=== PATIENT | male | born 1975 ===

== ENCOUNTER 2017-05-05 08:09 | Emergency (ER) | payer OTHER ==
[~2017-05-05] VITALS: Ht 177.8 cm; Wt 69.1 kg
[2017-05-05 08:17] VITALS: BP 105/68; PULSE 95; RESP 16; O2SAT 100
--- NOTE | 2017-05-05 08:34 | ED.REPORT ---
HPI-Trauma Minor / Fall Date of Service May 05, 2017 ED Provider: Dr. aDmon Pt is a 41 year old male with a hx of Afib on Coumadin and stroke presenting to the ED after 2 syncopal episodes just prior to arrival. Associated symptoms include dizziness, palpitations, weakness in the legs, and unsteadiness. Denies abdominal pain, nausea, vomiting, speech problems, or headache. His reports that his first episode was when he jumped up from bed and the second was while standing and he fell backwards. His reports that the pt was confused and disoriented following the episode but he arrives to the ED awake and alert. Denies hx of DVT or PE. Nursing Notes Stated Complaint: SYNCOPE, LIGHT HEADED Chief Complaint: General Complaint Nursing Notes Reviewed: Yes Allergies: Coded Allergies: No Known Allergies (Unverified , 05/05/17) General Time Seen by MD: 08:34 Chief Complaint Fall, Other (Syncope) Hx Obtained From: Patient, Spouse Arrived By: Walk-in Onset Occurred: Just prior to arrival Symptom Duration: Since onset Caused by: Fall on ground Severity: Current: No pain currently Severity: Maximum: No pain Recent Healthcare: No recent doctor visit, No recent hospitalization Similar Sx Previous: No Past Medical History Past Medical History Afib on Coumadin Stroke Past Surgical History denies Smoking History Unknown if Ever Smoker Social History Just moved here from [place] Ambulatory Status Independent Review of Systems Neurologic: Reports: Change LOC, Confusion, Dizziness, Problem walking, Syncope , Weakness, Denies: Headache, Slurred speech, Unable to speak Complete sys rev & neg: except as marked. Cardiovascular: Reports: Palpitations GI: Denies: Abdominal pain, Nausea, Vomiting Physical Exam Initial Vital Signs Vital Signs (First) Date Time Temp Pulse Resp B/P Pulse Ox O2 Delivery O2 Flow Rate FiO2 05/05/17 08:17 36.1 95 16 105/68 100 05/05/17 09:01 Room Air Initial VS: Reviewed ENT: Mucous membranes moist, Conjunctiva normal, No scleral icterus Respiratory: Breath sounds normal, Clear to auscultation, No respiratory distress Abdomen / GI: Soft, Non-tender, No guarding, No rebound, No distention Extremities: Vascular intact, Neuro intact, No swelling, No tenderness Skin: Warm, Dry, No cyanosis Psychiatric: Mood/affect normal, Behavior normal, Normal thought content General/Constitutional: Awake, Alert, No acute distress Head / Eyes: Atraumatic, Normocephalic, PERRL, EOMI, No nystagmus Cardiovascular: No gallop, No murmurs, No rubs Heart Rate / Rhythm: Positive: Irreg irregular rhythm, Tachycardia Neurologic: Oriented X3, Speech NL, No motor deficits, No sensory deficits, CN II - XII intact, Reflexes equal bilat, Cerebellar NL, Memory NL Neurologically intact. Interpretation & Diagnostics Lab Results Interpretation Result Diagram: 05/05/17 0835 Test 05/05/17 08:35 05/05/17 08:58 White Blood Count 8.6th/mm3 (3.8-10.1) Red Blood Count 4.83mil/mm3 (4.40-5.80) Hemoglobin 15.6g/dL (13.8-17.2) Hematocrit 44.7% (41.0-50.0) Mean Corpuscular Volume 92.5fL (81-100) Mean Corpuscular Hemoglobin 32.3pg (27.0-35.0) Mean Corpuscular Hemoglobin Concent 34.9% (32.0-37.0) Red Cell Distribution Width 13.1% (12.3-15.4) Platelet Count 176bil/L (150-400) Neutrophils (%) (Auto) 67.8% (40-74) Lymphocytes (%) (Auto) 22.0% (14-46) Monocytes (%) (Auto) 8.5% (4-12) Eosinophils (%) (Auto) 1.2% (0-5) Basophils (%) (Auto) 0.3% (0-3) Prothrombin Time 21.9sec (8.1-12.5) Prothromb Time International Ratio 2.02ratio ECG Interpretation ECG Interpretation: Afib with a rate of 112. Time: 08:54 Interpreted by: ED physician CT Head Interpretation IMPRESSION: 1. Left frontal subarachnoid hemorrhage and probable trace subdural hematoma as above. No midline shift. This finding was discussed with Dr. Cole 8:52 AM on 05/05/17. 2. Old left frontal infarct. Dictated by: Farideh Jennings M.D. on 05/05/2017 at 8:50 Study: Head CT no contrast Interpretation / Wet Read by: Interpret - Radiologist Re-Eval/Medical Decision Med Decision/Clinical Course Traumatic subarachnoid hemorrhage and subdural hematoma. Warfarin-induced coagulopathy. A. fib with RVR treated with IV metoprolol. Patient will be transferred to [facility] for definitive management. Re-Evaluation/Progress #1: Time of Eval: 08:52 Patient Status: Condition improved Re-Evaluation/Progress Note: Discussed CT results and presence of brain bleed. Discussed plan for transfer to [facility]. Pt understands and agrees. Performed neuro exam. Re-Evaluation/Progress #2: Time of Eval: 08:59 Patient Status: Condition improved Re-Evaluation/Progress Note: Discussed risks of the bleed. All questions addressed. Consultation #1: Call Returned at: 09:01 Note: Consultation with Jese at the transfer center. Requesting airlift to [facility]. Consultation #2: Consulted With: Neurosurgery Call Returned at: 09:06 Note: Dr. Grant at [facility] accepts transfer. Counseled Regarding: Diagnosis, Lab results, Need for transfer ([facility]) Discharge & Departure Impression: Primary Impression: Traumatic subarachnoid hemorrhage Encounter type: initial encounter Loss of consciousness presence/duration: with LOC of 30 min or less Qualified Code: S06.6X1A - Traumatic subarachnoid hemorrhage with loss of consciousness of 30 minutes or less, initial encounter Disposition: Transfer, Acute Care Facility ([facility]) Transfer Requested at: 08:52 Call returned time (904) Receiving Hospital: [facility] emergency department Transfer Accepted: Yes Transfer Accepted at: 09:06 Transfer Reason: Higher level of care Spoke with: Specialty physician Patient Status: Stable, Stable for transfer Patient Informed: Yes Discharge Condition All VS Reviewed: Yes Condition: Improved Crit Care Except Billable Proc Time Spent: 30-74 minutes Services Performed: Patient management by me, Time spent at bedside, Reviewing test results, Reviewing imaging, Discussing patient care, Documentation in record Critical Care Notes: See MDM, 45 minutes Scribe Attestation Portions of this note were transcribed by Graciela King. I, Dr. Damon personally performed the history, physical exam and medical decision-making; I reviewed and confirmed the accuracy of the information in the transcribed note. Signed by: Mitchel Alfaro, 05/05/2017. Risk Factors )( IC Bleed Risk Strat Blood thinners Prior epidural bleed RF Statements: Risk factors reviewed Quinten Damon DO May 05, 2017 08:34 GRACIELA KING May 05, 2017 08:40
[2017-05-05 08:50] LABS: BASOPHILS % (AUTO) 0.3 % (0-3); EOSINOPHILS % (AUTO) 1.2 % (0-5); MONOCYTES % (AUTO) 8.5 % (4-12); Mean Corpuscular Hemoglobin 32.3 pg (27.0-35.0); Mean Corpuscular Volume 92.5 fL (81-100); NEUTROPHILS % (AUTO) 67.8 % (40-74); Platelet Count 176 bil/L (150-400)
--- NOTE | 2017-05-05 08:55 | DRSVH ---
PROCEDURE: CT BRAIN WITHOUT CONTRAST ([id number]) INDICATIONS: syncope/on blood thinners TECHNIQUE: Noncontrast 4.5 mm thick angled axial sections acquired from the foramen magnum to the vertex, with c oronal reformats. COMPARISON: None. FINDINGS: Image quality: Excellent. CSF spaces: Basal cisterns are patent. No extra-axial fluid collections. Ventricles are normal in size and shape. Brain: No midline shift. No intracranial masses. There is a small amount of subarachnoid hemorrhage along the medial aspect of the left frontal lobe. There may be a small component of subdural hemorrh age along the falx cerebri as well. Taylor-white matter interface is normal. Encephalomalacia is prese nt within the lateral aspect of the left frontal lobe, likely within the watershed area between the a nterior and middle cerebral arteries. No intraventricular hemorrhage. Skull and face: Calvarium and visualized facial bones are intact, without suspicious lesions. Sinuses: Visualized sinuses and mastoids are clear. IMPRESSION: 1. Left frontal subarachnoid hemorrhage and probable trace subdural hematoma as above. No midline radha ft. This finding was discussed with Dr. Cole 8:52 AM on 05/05/17. 2. Old left frontal infarct. Dictated by: Farideh Jennings M.D. on 05/05/2017 at 8:50 Approved by: Farideh Jennings M.D. on 05/05/2017 at 8:53
[2017-05-05] MEDS ORDERED: MeTOProlol 1 mg/mL 5 mL Inj IVPUSH SCH (09:00)
[2017-05-05 09:01] VITALS: BP 111/60; PULSE 115; RESP 16; O2SAT 98
[2017-05-05 09:05] LABS: INR 2.02 ratio
[2017-05-05] MEDS ORDERED: Phytonadione (Adult) 10 MG in Dextrose 5%-Pha MIX 50 ML IV ONE (09:10)
[2017-05-05] MEDS ORDERED: PROTHROMBIN COMPLEX IV ONE (09:10)
[2017-05-05 09:13] LABS: TROPONIN T 0.01 ug/L (0.0-0.011)
[2017-05-05 09:33] VITALS: BP 108/66; PULSE 97; RESP 16; O2SAT 98
[2017-05-05 09:51] VITALS: BP 108/66; PULSE 112; RESP 16; O2SAT 98
== END 2017-05-05 09:53 | disposition short-term general hospital (02) ==
LOC: SED 08:09
DX: S06.6X1A Traumatic subarachnoid hemorrhage with loss of consciousness of 30 minutes or less, initial encounter (principal); D68.32 Hemorrhagic disorder due to extrinsic circulating anticoagulants; T45.515A Adverse effect of anticoagulants, initial encounter; W01.0XXA Fall on same level from slipping, tripping and stumbling without subsequent striking against object, initial encounter; Y93.01 Activity, walking, marching and hiking; Y99.8 Other external cause status; Y92.018 Other place in single-family (private) house as the place of occurrence of the external cause; I48.91 Unspecified atrial fibrillation; F12.10 Cannabis abuse, uncomplicated; Z86.73 Personal history of transient ischemic attack (TIA), and cerebral infarction without residual deficits; Z79.01 Long term (current) use of anticoagulants
CPT/HCPCS: 36415; 70450; 80053; 83880; 84484; 85025; 85610; 86850; 93005; 96361; 96374; 96375; 99291; C9132; J3430

== ENCOUNTER 2017-06-10 13:16 | Emergency (ER) | payer OTHER ==
[~2017-06-10] VITALS: Ht 180.3 cm; Wt 68.2 kg
[2017-06-10] VITALS (8 sets, daily range): BP systolic 128–138; BP diastolic 71–89; PULSE 66–85; RESP 14–18; O2SAT 97–98
--- NOTE | 2017-06-10 14:12 | DRSVH ---
PROCEDURE: X-RAY CHEST ONE VIEW, PORTABLE ([id number]) INDICATIONS: PAIN, cardiomyopathy hx TECHNIQUE: One view of the chest was acquired. COMPARISON: None. FINDINGS: Surgical changes and devices: None. Lungs and pleura: No pleural effusions or pneumothorax. Lungs are clear. Mediastinum: Mediastinal contours appear normal. Heart size is normal. Bones and chest wall: No suspicious bony lesions. Overlying soft tissues appear unremarkable. IMPRESSION: No acute cardiopulmonary disease process. Dictated by: Michelle Ellis MD, PhD on 06/10/2017 at 13:10 Approved by: Michelle Ellis MD, PhD on 06/10/2017 at 13:11
[2017-06-10 14:36] LABS: BASOPHILS % (AUTO) 0.2 % (0-3); EOSINOPHILS % (AUTO) 0.7 % (0-5); MONOCYTES % (AUTO) 10.5 % (4-12); Mean Corpuscular Volume 89.8 fL (81-100); NEUTROPHILS % (AUTO) 69.8 % (40-74); Platelet Count 198 bil/L (150-400)
--- NOTE | 2017-06-10 15:08 | ED.REPORT ---
HPI-General Illness Peds Date of Service Jun 10, 2017 ED Provider: Simran Garcia MD The pt is a 41 y/o male with hx of recent traumatic subarachnoid hemorrhage and subdural hematoma (05/05/2017) on Warfarin, A-fib with RVR, CHF and Hep C s/p Harvoni treatment who presents to the ED complaining of persistent headache onset 4 days ago. The headache has been constant since onset and he has never experienced similar pain previously, reporting that it is the "worst headache of my life." The headache has no known relieving factors and he has been bedridden for the last 2 days due to his discomfort. The patient admits to histting his head 4 days ago but denies any other recent traumas. The pt is also complaining of bilateral hip/leg cramps that are exacerbated by movement and walking and radiate to his neck and back. He is concerned that it might be due to change in medication in February of 2017 including the following recent additions; metoprolol, spironolactone, Entresto (acubitril/valsartan), and dofetelide (antiarrythmic). Associated symptoms also include dizziness and vision changes, chills, rigors, diarrhea, and photophobia. He denies chest pain, abdominal pain or any other symptoms at this time. Nursing Notes Stated Complaint: HEADACHES/BODY CRAMPS/UC Chief Complaint: General Complaint Nursing Notes Reviewed: Yes Allergies: Coded Allergies: No Known Allergies (Unverified , 05/05/17) General Time Seen by MD: 15:13 Chief Complaint Headache Hx Obtained from: Patient Arrived by: Walk-in Sudden in Onset?: Yes Onset Occurred: 4 days ago Symptom Duration: Constant Location: : Head Radiation: : Back Severity: Current: Severe Severity: Maximum: Severe Associated with: Reports: Chest pain, Dizziness, Neck pain, Off balance, Pain on walking, Vision change Pertinent Negative: Pt denies other symptoms Pertinent Negative: Relieved by nothing Context: Immunization Status General: Unknown Recent Healthcare: No recent hospitalization, Recent doctor visit Similar Sx Previous: Yes Past Medical History 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 Traumatic subarachnoid hemorrhage and subdural hematoma 04/2017, on Warfarin 3. A. fib with RVR 4. Hepatitis C post harvoni treatment Past Surgical History Subarachnoid hemorrhage (05/05/17) Family History Non contributory Smoking History Former Smoker Social History Partnered ([employer]) Not currently working Uses marijuana Social History: Reports: Prior DCF involvement Ambulatory Status Ambulatory Status: Independent Review of Systems Review of Systems Note: + mild expressive and mild receptive aphasia as a consequence of previous stroke. + rigors Denies recent trauma to the head since his last visit on 05/05/17 Full Review of Systems Constitutional: Reports: Chills, Denies: Fever Cardiovascular: Denies: Chest pain GI: Reports: Diarrhea, Denies: Abdominal pain Musculoskeletal: Reports: Extremity pain (LE cramping), Joint pain (Bilateral hip cramp) Neurologic: Reports: Headache, Denies: Vision change Complete sys rev & neg: except as marked. Physical Exam Initial Vital Signs Vital Signs (First) Date Time Temp Pulse Resp B/P Pulse Ox O2 Delivery O2 Flow Rate FiO2 06/10/17 13:31 37.2 71 16 136/89 97 06/10/17 15:13 Room Air Initial VS: Reviewed Head / Eyes: Atraumatic, Normocephalic Respiratory: No respiratory distress Skin: Warm, Dry, No cyanosis Neurologic: Alert, Oriented, Nonfocal Psychiatric: Mood/affect normal, Behavior normal General / Constitutional: Awake, Alert, No apparent distress Respiratory / Chest: Atraumatic, Breath sounds NL, Breath sounds = bilat, No respiratory distress Cardiovascular: Heart rate NL, Regular rhythm, Heart sounds NL, Peripheral circulation NL, Pulses = bilaterally Abdomen: Atraumatic, Soft Upper Extremity / MS: Atraumatic, Normal inspection, Neurologic intact, Vascular intact Lower Extremity / Pelvis / MS: Atraumatic, Vascular intact Neurologic: Orientation NL for age, Speech NL for age, No sensory deficits, CN II - XII intact, Reflexes equal bilat Cerebellar Dysfunction: Positive: Heel-de la garza abnl (secondary to weakness, he was unable to perform) NEUROLOGIC: Mild ataxia present finger to nose Bilateral 4/5 strength in both lower extremities Interpretation & Diagnostics CT Lumbar w/o contrast Read by Radiology IMPRESSION: No fracture. Dictated by: Michelle Ellis MD, PhD on 06/10/2017 at 15:25 Lab Results Interpretation Result Diagram: 06/10/17 1422 06/10/17 1422 Test 06/10/17 14:22 White Blood Count 10.3th/mm3 (3.8-10.1) Red Blood Count 4.88mil/mm3 (4.40-5.80) Hemoglobin 15.6g/dL (13.8-17.2) Hematocrit 43.8% (41.0-50.0) Mean Corpuscular Volume 89.8fL (81-100) Mean Corpuscular Hemoglobin 32.0pg (27.0-35.0) Mean Corpuscular Hemoglobin Concent 35.6% (32.0-37.0) Red Cell Distribution Width 12.0% (12.3-15.4) Platelet Count 198bil/L (150-400) Neutrophils (%) (Auto) 69.8% (40-74) Lymphocytes (%) (Auto) 18.6% (14-46) Monocytes (%) (Auto) 10.5% (4-12) Eosinophils (%) (Auto) 0.7% (0-5) Basophils (%) (Auto) 0.2% (0-3) Prothrombin Time 31.5sec (8.1-12.5) Prothromb Time International Ratio 2.88ratio Sodium Level 136mEq/L (134-144) Potassium Level 4.7mEq/L (3.5-5.2) Chloride Level 97mEq/L (97-108) Carbon Dioxide Level 21mmol/L (18-29) Blood Urea Nitrogen 12mg/dL (6-24) Creatinine 0.77mg/dL (0.76-1.27) Estimat Glomerular Filtration Rate 118mL/min (>59) Glucose Level 115mg/dL (60-99) Calcium Level 9.1mg/dL (8.5-10.1) Magnesium Level 2.0mg/dL (1.6-2.6) Total Bilirubin 0.7mg/dL (0.0-1.2) Aspartate Amino Transf (AST/SGOT) 19U/L (0-50) Alanine Aminotransferase (ALT/SGPT) 11U/L (0-44) Alkaline Phosphatase 55U/L (25-150) Troponin T < 0.010ug/L (0.0-0.011) Total Protein 7.8g/dL (6.4-8.4) Albumin 4.4g/dL (3.4-5.0) Hold Guerrero Top Tube Received (Received) ECG Interpretation ECG Interpretation: Normal Sinus Rhythm Rate [address] changes Time: 15:53 Interpreted by: ED physician X-Ray Chest Interpretation Chest Xray Interpretation: IMPRESSION: No acute cardiopulmonary disease process. Dictated by: Michelle Ellis MD, PhD on 06/10/2017 at 13:10 Interpretation / Wet Read by: Interpret - Radiologist CT Head Interpretation IMPRESSION: Left-sided extra-axial fluid collection, which is regarded to be a subdural fluid collection. There is associated mass effect seen upon the adjacent brain. Resolution of the previously seen subarachnoid hemorrhage. Note: Case discussed by telephone with Dr. Jean at 1517 hrs. on June 10, 2017. Dictated by: Jagjit Robles M.D. on 06/10/2017 at 15:14 Study: Head CT no contrast Interpretation / Wet Read by: Interpret - Radiologist Re-Eval/Medical Decision Med Decision/Clinical Course metoprolol, spironolactone, Entresto (acubitril/valsartan), dofetelide (antiarrythmic) added in February Syncope in February (admit at [facility]), again in April seen at [facility] and transferred to 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 On further questioning does admit to hitting his head on his car about 4 days ago. He is currently anticoagulated for his atrial fibrillation. Therapeutic with an INR of 2.8. CT scan reveals a left-sided subdural hematoma, 11 mm thick with 1-2 mm of [id number] shift. He has been hemodynamically and neurologically stable throughout his emergency room stay and it was the progressive pain in the head in the lower extremities that brought him to the emergency room 4 days after the symptoms started. CT scan specifically reviewed and it is noted that the findings in April have completely resolved and this is a new subdural. Patient had a very positive experience at [facility]. Cardiology is there I will see if we can facilitate transfer and admission to [facility] rather than transfer down to [facility]. At this time, I do not have reason to expect meningitis nor other infectious etiology. Source of Hx: Old records Re-Evaluation/Progress #1: Time of Eval: 15:45 Re-Evaluation/Progress Note: The pt is rechecked at thids time. His pain is still present upon recheck. Further history about his previous episode is obtained. Pt reports that during the first sycopal episode in February, he became increasingly dizzy, and was hospitalized fro 7 days. This current episode is different per the pt's partner because of the presence of lower extremity cramps. After his previous stroke, the pt experienced complete aphasia that has resolved with the excepetion of mild residual aphasia. Re-Evaluation/Progress #2: Time of Eval: 15:59 Patient Status: Condition improved, Pain improved Re-Evaluation/Progress Note: Discussed probability of pt being transfered to [facility], plan of treatment. He is currently requesting to be transferred to [place] for further work-up. The patient's partner's concerns about his kidney fuction are addressed. Consultation #1: Call Returned at: 15:20 (Radiology) Note: new Subdural 11mm thickness. 1-2mm shift. All findings from April have resolved Consultation #2: Referral / Consult Name: Chari Anand LAc Consulted with: Hospitalist Call Returned at: 17:30 Supervisor Lens Generating: Will see patient, Agrees with eval, Agrees with plan, Accepts admit Note: Agrees to admit pt at [facility], but the provider needs to check with Dr. Camp, a neurosurgeon for the final decision. Consultation #3: Referral / Consult Name: Luis Camp MD Call Returned at: 17:34 Supervisor Lens Generating: Will see patient, Agrees with eval, Agrees with plan, Accepts admit Note: Consulted with Dr. Camp and is willing to admit the pt. Counseled Regarding: Diagnosis, Lab results, Need for transfer Discharge & Departure Impression: Primary Impression: Subdural hematoma Additional Impression: Bilateral leg weakness Ruled Out: Epidural hematoma Disposition: Transfer, Acute Care Facility ([facility]) Receiving Hospital: [facility] Discharge Condition )( All Prior VS Reviewed: Yes Condition: Improved Referrals: [facility],INTER (PCP) Scribe Attestation Portions of this note were transcribed by Diane Klein and Adriano Dutta. I, Dr. Simran Garcia personally performed the history, physical exam and medical decision-making; I reviewed and confirmed the accuracy of the information in the transcribed note. Signed by: Diane Klein and Mitchel Beckett, 06/10/17. copies to: [facility] Simran Garcia MD Jun 10, 2017 15:08 Diane Klein Jun 10, 2017 15:31 ADRIANO DUTTA Jun 10, 2017 16:29
[2017-06-10 15:12] LABS: TROPONIN T < 0.010 ug/L (0.0-0.011)
--- NOTE | 2017-06-10 15:21 | DRSVH ---
PROCEDURE: CT BRAIN WITHOUT CONTRAST ([id number]) INDICATIONS: alt mental status TECHNIQUE: Noncontrast 4.5 mm thick angled axial sections acquired from the foramen magnum to the vertex, with c oronal reformats. COMPARISON: [facility], CT, CT BRAIN WO CON, 05/05/2017, 8:38. FINDINGS: Image quality: CSF spaces: Basal cisterns are patent. Ventricles are normal in size and shape. Brain: There is an acute left-sided extra-axial hemorrhage seen, with a maximum thickness of 11 mm. The appearance is most consistent with a subdural hemorrhage. Mass effect is seen upon the adjacent brain This is new compared to the prior examination. There is a 1-2 mm of [id number] midline radha ft. On the prior examination, left frontal medial subarachnoid hemorrhage can be seen. This is no longer seen. Taylor-white matter interface is normal. Skull and face: Calvarium and visualized facial bones are intact, without suspicious lesions. Sinuses: Visualized sinuses and mastoids are clear. IMPRESSION: Left-sided extra-axial fluid collection, which is regarded to be a subdural fluid collect ion. There is associated mass effect seen upon the adjacent brain. Resolution of the previously seen subarachnoid hemorrhage. Note: Case discussed by telephone with Dr. Jean at 1517 hrs. on June 10, 2017. Dictated by: Jagjit Robles M.D. on 06/10/2017 at 15:14 Approved by: Jagjit Robles M.D. on 06/10/2017 at 15:19
[2017-06-10 15:39] LABS: INR 2.88 ratio
[2017-06-10] MEDS ORDERED: Ondansetron 2 mg/mL 2 mL Inj IVPUSH PRN (16:00)
[2017-06-10] MEDS ORDERED: Phytonadione (Adult) 10 MG in Dextrose 5%-Pha MIX 50 ML IV ONE (16:05)
[2017-06-10] MEDS: HYDROmorphone 0.5 mg/0.5 mL iSecure Syringe IVPUSH PRN ×3 (16:27→18:06)
--- NOTE | 2017-06-10 16:35 | DRSVH ---
PROCEDURE: CT LUMBAR SPINE WITHOUT CONTRAST ([id number]) INDICATIONS: pain, new subdural, TECHNIQUE: Noncontrast 3 mm thick sections acquired from the T12 level to the sacrum. Sagittal and coronal refo rmats were constructed. For radiation dose reduction, the following was used: automated exposure co ntrol. COMPARISON: None. FINDINGS: Image quality: Excellent. Bones: There is normal bony alignment. No acute vertebral body compression fractures. No suspiciou s lytic or blastic bony lesions. Central spinal caliber is of normal overall caliber. No pars defec ts mild multilevel degenerative changes are noted. Bilateral sacroiliac joint osteoarthritic degenera tive changes. Soft tissues: No retroperitoneal masses or hematomas. Visualized aorta is normal in caliber. Scatte red atherosclerotic calcifications noted in the visualized abdominal and pelvic vasculature IMPRESSION: No fracture. Dictated by: Michelle Ellis MD, PhD on 06/10/2017 at 15:25 Approved by: Michelle Ellis MD, PhD on 06/10/2017 at 15:34
== END 2017-06-10 19:39 | disposition short-term general hospital (02) ==
LOC: SED 13:16
DX: S06.5X0A Traumatic subdural hemorrhage without loss of consciousness, initial encounter (principal); M62.81 Muscle weakness (generalized); M25.552 Pain in left hip; M25.551 Pain in right hip; W22.09XA Striking against other stationary object, initial encounter; Y93.89 Activity, other specified; Y99.8 Other external cause status; Y92.89 Other specified places as the place of occurrence of the external cause; F12.10 Cannabis abuse, uncomplicated; I48.91 Unspecified atrial fibrillation; I50.9 Heart failure, unspecified; Z87.891 Personal history of nicotine dependence
CPT/HCPCS: 36415; 36430; 70450; 71010; 72131; 80053; 82948; 83735; 84484; 85025; 85610; 93005; 96374; 96375; 96376; 99285; J1170; J3430; P9017

== ENCOUNTER 2017-06-20 10:44 | Inpatient (IN) | payer OTHER, MEDICAID ==
[~2017-06-20] VITALS: Ht 180.3 cm; Wt 66.5 kg
[2017-06-20] VITALS (8 sets, daily range): BP systolic 112–149; BP diastolic 81–104; PULSE 85–121; RESP 14–33; O2SAT 97–99
--- NOTE | 2017-06-20 11:14 | ED.REPORT ---
HPI-General Illness Date of Service Jun 20, 2017 ED Provider: Abdias Morales MD Mr. Lazaro is a 41-year-old male with a history of subdural hematoma last week presents to the ED with low back and bilateral hip pain. Patient denies any history of trauma. Patient notes that his pain is "everywhere" in his back hips and legs. He was seen at [facility] 2 weeks ago for the exact same thing. She noted that at that time he was given oxycodone, morphine, Dilaudid to control the pain. Home he has been taking Vicodin which has not helped. Patient also has a history of enlarged prostate and has been getting up every hour to urinate. Patient notes that he has been having a hard time controlling his bowels and urine. Associated symptoms of lightheadedness, abdominal pain, weakness, chills. He denies any chest pain, shortness of breath, changes in his vision, slurred speech. Due to the sub-dural hematoma last week patient has stopped his Coumadin. He is concerned because he has a history of A. fib. Patient denies any cough, shortness of breath, swelling in his extremities. Nursing Notes Stated Complaint: POSSIBLE BRAIN BLEED/PROSTATE PAIN Chief Complaint: General Complaint Allergies: Coded Allergies: No Known Allergies (Unverified , 06/20/17) Scheduled Amiodarone (Amiodarone) 200 Mg Tablet 200 MG PO QAM Cephalexin (Cephalexin) 500 Mg Tablet 500 MG PO TID Dofetilide (Dofetilide) 250 Mcg Capsule 250 MCG PO BID Magnesium Oxide (Magnesium) 400 Mg Tablet 400 MG PO QAM Metoprolol Succinate ER (Metoprolol Succinate ER) 50 Mg Tab.er.24h 50 MG PO QAM Sacubitril/Valsartan (Entresto 24 mg-26 mg Tablet) 24 Mg-26 Mg Tablet 1 EACH PO BID Spironolactone (Spironolactone) 25 Mg Tablet 12.5 MG PO MON/WED/FRI Scheduled PRN Acetaminophen (Acetaminophen) 325 Mg Tablet 650 MG PO Q4H PRN PRN Headache Furosemide (Furosemide) 40 Mg Tablet 40 MG PO DAILY PRN PRN EDEMA Hydrocodone-Acetaminophen 5-325 mg (Hydrocodone-Acetaminophen 5-325 mg) 1 Each Tablet 1 TABLET PO Q4H PRN PRN For Pain General Time Seen by MD: 11:01 Chief Complaint Back pain, Other hip pain Hx Obtained From: Patient Arrived By: Walk-in Sudden in Onset?: No Onset Occurred: More than a week ago... (2 weeks) Symptom Duration: More than a week... (2 weeks) Location: : Back: Hip left: Hip right Quality: Aching Radiation: : Leg left: Leg right Severity: Current: Pain level 8 out of 10 Severity: Maximum: Pain level 10 out of 10 Associated with: Reports: Pain, Weakness Pertinent Negative: Pt denies other symptoms Exacerbated by: Moving affected area, Standing up Relieved by: Prescription meds Past Medical History Past Medical History Notes: Day Care Aide: Dr. Alvares Past Medical History Afib on Coumadin Stroke Subarachnoid hemorrhage April 2017 Subdural hematoma 06/10/17 Past Surgical History denies Smoking History Former Smoker Social History Just moved here from [place] Alcohol Use: Denies alcohol use Ambulatory Status Independent Review of Systems Full Review of Systems Constitutional: Reports: Chills, Denies: Fever Respiratory: Denies: Dyspnea on exertion Cardiovascular: Denies: Chest pain, Edema, Syncope GI: Reports: Diarrhea, Denies: Nausea, Vomiting Male: Reports Urinary frequency, Denies Dysuria Musculoskeletal: Reports: Back pain Neurologic: Reports: Confusion, Lightheaded, Weakness, Denies: Slurred speech, Syncope, Vision change Complete sys rev & neg: except as marked. Physical Exam Vital Signs Vital Signs Date Time Temp Pulse Resp B/P Pulse Ox O2 Delivery O2 Flow Rate FiO2 06/20/17 14:11 87 15 134/85 97 Room Air 06/20/17 13:13 100 33 149/104 99 Room Air 06/20/17 10:51 37.0 88 16 136/87 98 Room Air General/Constitutional: Well-developed, Well-nourished Head / Eyes: Atraumatic, Normocephalic, PERRL ENT: Mucous membranes moist, Conjunctiva normal, No scleral icterus Neck: Supple, Non-tender, Full range of motion Respiratory: Breath sounds normal, Clear to auscultation, No respiratory distress Cardiovascular: Regular rate & rhythm, Heart sounds normal, Intact distal pulses Abdomen / GI: Soft, No guarding, No rebound, No distention Back: No CVA tenderness Lymphatic: No lymphadenopathy Extremities: Vascular intact, Neuro intact, No swelling, No tenderness Skin: Warm, Dry, No cyanosis Neurologic: Alert, Oriented, Nonfocal Psychiatric: Mood/affect normal, Behavior normal, Normal thought content General/Constitutional: Awake, Alert, Well appearing Alertness: Positive: Confused Abdomen: BS normoactive Tenderness/Guarding/Rebound: Positive: Tender LLQ... (Mild), Tender RLQ... ( Mild) Rectum / Perineum: Blood - occult heme -, internal control analyst passed, No gross blood, No fissures, No hemorrhoids, Sphincter tone NL, No saddle anesthesia Interpretation & Diagnostics Lab Results Interpretation Result Diagram: 06/20/17 1155 06/20/17 1615 Test 06/20/17 11:55 White Blood Count 8.9th/mm3 (3.8-10.1) Red Blood Count 4.48mil/mm3 (4.40-5.80) Hemoglobin 14.2g/dL (13.8-17.2) Hematocrit 38.9% (41.0-50.0) Mean Corpuscular Volume 86.8fL (81-100) Mean Corpuscular Hemoglobin 31.7pg (27.0-35.0) Mean Corpuscular Hemoglobin Concent 36.5% (32.0-37.0) Red Cell Distribution Width 11.1% (12.3-15.4) Platelet Count 253bil/L (150-400) Neutrophils (%) (Auto) 69.1% (40-74) Lymphocytes (%) (Auto) 21.1% (14-46) Monocytes (%) (Auto) 8.9% (4-12) Eosinophils (%) (Auto) 0.7% (0-5) Basophils (%) (Auto) 0.1% (0-3) Prothrombin Time 11.1sec (8.1-12.5) Prothromb Time International Ratio 1.04ratio Potassium Level 4.5mEq/L (3.5-5.2) Chloride Level 81mEq/L (97-108) Carbon Dioxide Level 22mmol/L (18-29) Blood Urea Nitrogen 10mg/dL (6-24) Creatinine 0.59mg/dL (0.76-1.27) Estimat Glomerular Filtration Rate 160mL/min (>59) Glucose Level 122mg/dL (60-99) Calcium Level 9.0mg/dL (8.5-10.1) Total Bilirubin 0.7mg/dL (0.0-1.2) Aspartate Amino Transf (AST/SGOT) 23U/L (0-50) Alanine Aminotransferase (ALT/SGPT) 14U/L (0-44) Alkaline Phosphatase 51U/L (25-150) Total Protein 7.1g/dL (6.4-8.4) Albumin 4.0g/dL (3.4-5.0) Hold Guerrero Top Tube Received (Received) X-Ray Interpretation Xray Interpretation: IMPRESSION: No source of pain found, no acute fracture found. There is, however, a subtle increased radiodensity along the inferior aspect of each obturator ring slightly greater on the left than the right that conceivably could represent obturator ring fractures that are healing or healed. MR scanning could be utilized for more accurate assessment if clinically desired. X-Ray Ordered: Hip right, Hip left Interpretation / Wet Read by: Interpret - Radiologist CT Head Interpretation IMPRESSION: Evolving left subdural hematoma, with reduction of the overall internal radiodensity consistent with expected change in the internal blood products. There are several areas of slight increased radiodensity along the inferior posterior margin of the subdural hemorrhage that might represent a manifestation of recent internal hemorrhage but the overall mass effect has not changed and for this reason the likelihood of acute superimposed on prior hemorrhage is considered relatively low. While the left hemispheric mild effacement is again seen [id number] mass effect has not developed. Study: Head CT no contrast Interpretation / Wet Read by: Interpret - Radiologist Re-Eval/Medical Decision Med Decision/Clinical Course Mr. Lazaro is a 41-year-old male with a history of subdural hematoma on assents to the ED with low back pain and hip pain. She also notes having uncontrolled urinary and bowel. Family notes that he is getting up every 5 minutes to go to the bathroom. He has not slept in 5 days. Patient also notes some weakness and numbness in his legs. Rectal exam showed normal sphincter tone. Sensation was intact. There is no signs of bleeding. Stool guaiac was negative. Repeat head CT showed decrease in hematoma size. Labs show that patient is hyponatremic. Na++ 119. Patient is symptomatic with confusion. Possible subdural hematoma causing SIADH. Patient is also having lower abdominal, pelvis pain. His history reveals that he has urinary frequency but decreased in urine output. Bladder scan reveals 640 cc retained. Urinary catheter was inserted. He will be admitted to the hospital for hyponatremia management. Discharge & Departure Primary Impression: Acute hyponatremia Additional Impression: Urinary obstruction Disposition: ADMITTED TO HOSPITAL Discharge Condition All VS Reviewed: Yes Condition: Critical Patient Instructions: Acute Low Back Pain (ED), Diabetes Insipidus (ED) Additional Instructions: Today your labs show that you have a very low sodium. We would need to admit you to the hospital. This is likely due to your brain bleed and increase in your urine output. We have done a thorough workup of your hip and back pain today. X-rays shows that you do not have a fracture. Rectal exam showed that you do not have any nerve compression. Rectal exam also showed that you are not bleeding. Please follow-up with your primary care provider for pain management. They would also be able to address your issues with the enlarged prostate. Follow-up with your campus administrator. Inform him that you have stopped your warfarin due t your brain bleed last week (subdural hematoma). Today the CT scan of your brain showed that the size of the hematoma has decreased. I hope you feel better. Referrals: [facility] (PCP) Crit Care Except Billable Proc Time Spent: 30-74 minutes Services Performed: Patient management by me, Time spent at bedside, Reviewing test results, Reviewing imaging, Discussing patient care, Documentation in record, Time with fam/surrogate EDSupervising Provider for APC: Abdias Morales MD Attending Statement I discussed case with resident Dr. Araceli Rowe. I evaluated the patient independently and agree with plan as above. In brief 41-year-old male history of stroke, atrial fibrillation who is one month status post traumatic subarachnoid hemorrhage and subdural hematoma presenting with frequent urination. His sodium is 119. He does have some confusion for last couple days per family. No seizures. He is euvolemic. I have I suspicion for SIADH. No identifiable meds causing these symptoms from med report by patient. Fluid restriction. Discussed with Dr. Sargent nephrology who will see the patient and make that determination on 3% normal saline. Abdias Morales MD Jun 20, 2017 11:14 Araceli Rowe DO Jun 20, 2017 11:52
--- NOTE | 2017-06-20 12:14 | DRSVH ---
PROCEDURE: CT BRAIN WITHOUT CONTRAST ([id number]) INDICATIONS: headache recent subdural TECHNIQUE: Noncontrast 4.5 mm thick angled axial sections acquired from the foramen magnum to the vertex, with c oronal reformats. COMPARISON: [facility], CT, CT BRAIN WO CON, 06/10/2017, 15:08. FINDINGS: Image quality: Excellent. CSF spaces: Basal cisterns are patent. No extra-axial fluid collections. Ventricles are unchanged in size and shape with mild left-sided ventricular distortion due to the overlying previously present subdural hemorrhage which does not appear to have significantly changed in size. Brain: No midline shift. No intracranial masses or hemorrhage. Taylor-white matter interface is norm al. Skull and face: Calvarium and visualized facial bones are intact, without suspicious lesions. Sinuses: Visualized sinuses and mastoids are clear. IMPRESSION: Evolving left subdural hematoma, with reduction of the overall internal radiodensity con sistent with expected change in the internal blood products. There are several areas of slight incre ased radiodensity along the inferior posterior margin of the subdural hemorrhage that might represent a manifestation of recent internal hemorrhage but the overall mass effect has not changed and for th is reason the likelihood of acute superimposed on prior hemorrhage is considered relatively low. Whi le the left hemispheric mild effacement is again seen [id number] mass effect has not developed. Dictated by: Manny Cade M.D. on 06/20/2017 at 12:10 Approved by: Manny Cade M.D. on 06/20/2017 at 12:13
[2017-06-20 12:28] LABS: BASOPHILS % (AUTO) 0.1 % (0-3); EOSINOPHILS % (AUTO) 0.7 % (0-5); MONOCYTES % (AUTO) 8.9 % (4-12); Mean Corpuscular Hemoglobin 31.7 pg (27.0-35.0); Mean Corpuscular Volume 86.8 fL (81-100); NEUTROPHILS % (AUTO) 69.1 % (40-74); Platelet Count 253 bil/L (150-400)
[2017-06-20 12:41] LABS: INR 1.04 ratio
--- NOTE | 2017-06-20 13:10 | DRSVH ---
PROCEDURE: X-RAY PELVIS WITH BILATERAL HIPS, 3 VIEWS INDICATIONS: hip pain fall 2 weeks ago TECHNIQUE: AP pelvis with lateral view(s) of the bilateral hips. COMPARISON: None. FINDINGS: Bones: No definite acute or subacute fractures or dislocations however there is slight increased rad iodensity at the inferior aspect of each obturator ring, left greater than right. Pelvic ring appear s intact. No suspicious bony lesions. Soft tissues: The visualized bowel gas pattern is normal. No suspicious soft tissue calcifications. IMPRESSION: No source of pain found, no acute fracture found. There is, however, a subtle increased radiodensity along the inferior aspect of each obturator ring slightly greater on the left than the right that conceivably could represent obturator ring fractures that are healing or healed. MR scann ing could be utilized for more accurate assessment if clinically desired. Dictated by: Manny Cade M.D. on 06/20/2017 at 13:07 Approved by: Manny Cade M.D. on 06/20/2017 at 13:09
--- NOTE | 2017-06-20 15:25 | PCM.CHPMED ---
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 Patient recently had traumatic subarachnoid hemorrhage and subdural hematoma in April 2017. Patient had episode of syncope and head injury and was found to have intracranial bleed came to our emergency room and then transferred to [facility] on May 05, 2017. He stated that he spent a night over there and then was discharged. Two weeks ago, he started having headache, back and bilateral hip pain. Again he came to our emergency department on Jun 10, a repeat CAT scan revealed resolution of the previous seen subarachnoid hemorrhage. Lumbar spine CT showed no fracture. He was transferred to [facility] for further management. He received IV Dilaudid, morphine and oxycodone. He was sent home with Vicodin which has not alleviated his pain. Coumadin has been discontinue for at least 2 weeks. His initial basic metabolic panel revealed sodium level of 119. Ten days ago his serum sodium was 136. Patient reports drinking water ~ 8 glasses a day. According to his family patient has not slept for 4-5 nights due to polyuria. He stated that he constantly urinates every hour. He was recently told that he had enlarged prostate. He has not started any treatment. He also complaining of bowel and bladder incontinence. He reports history of loose stool. Review of Systems: Constitutional: Denies: Chills, Fever, Sweats Eyes: Denies: Blurred Vision, Double Vision Neck: Denies: Mass, Swelling Cardiovascular: Denies: Chest Pain, Edema, SOB on Exertion Respiratory: Denies: Cough, Shortness of Breath Gastrointestinal: Reports: Change in Appetite, Diarrhea, Denies: Abdominal Pain, Constipation Genitourinary: Reports: Change in Frequency, Incontinence, Nocturia Musculoskeletal: Reports: Back Pain Skin: Denies: Bruising Neurological: Denies: Change in LOC, Confusion, Seizures Endocrine: Denies: Recent A1C Hematologic: Reports: Abnormal Bleeding PMH Past Medical History Past Medical History 1. CHF dx 2014, secondary to viral cardiomyopathy, patient reported that his ejection fraction was 45%. He takes furosemide as needed. He has been on metoprolol, entresto, dofetilide for 3 months. 2. Traumatic subarachnoid hemorrhage and subdural hematoma 04/2017 3. A. Fib 4. Hepatitis C post Harvoni treatment Past Surgical History Family History: No significant kidney disease in the family. Social History: Smoking History Former Smoker Uses marijuana Allergies: Coded Allergies: No Known Allergies (Unverified , 05/05/17) Social History Hx Alcohol Use: NoHx Substance Use: Yes (marijuana OCC ) Smoking Status: Former Smoker Exam Vital Signs Vital Sign - Last Date Time Temp Pulse Resp B/P Pulse Ox O2 Delivery O2 Flow Rate FiO2 06/20/17 14:11 87 15 134/85 97 Room Air 06/20/17 10:51 37.0 General: Alert, Oriented X3, Cooperative Head: Normal, Facial Expression & Appearance Eyes: PERRLA, EOMI, Scleral Anicteric Mouth: Lips, Mouth Normal, Mucous Membr Moist/Short Pump Neck: Supple, No Thyromegaly Chest & Lungs: Chest Wall Normal, Clear to auscultation & percussion, Auscultation Cardiovascular: Exam Unremarkable, Regular Rate/Rhythm, Normal S1, Normal S2 Abdomen: Tender, Distended, No masses Extremities: No Edema Lab and Diagnostics Result Diagram: 06/20/17 1155 06/20/17 1155 Assessment & Plan Assessment This is a very pleasant 41-year-old male with significant past medical 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 Renal was consulted to manage hyponatremia. 1. Hyponatremia, unknown onset, presumably over 48 hours. He appears euvolemic per my assessment. My first impression is that he has SIADH related to recent intracranial bleed, narcotics and severe pain. I would like to obtain serum osmolality, urine osmolality and urine sodium to confirm the diagnosis. I will put patient on fluid restriction 1 L per day. Given normal mentation, I will not start 3%NaCL at this moment. Will monitor sodium Q 4 hr. 2. Polyuria History of enlarged prostate. Per history patient has consumes only 8 ounces of water a day. He has complained of frequency. He denied dysuria or hematuria. We need to rule out urinary retention. I would like to obtain bladder scan to assess postvoid residual. If urine volume over 400 mL, we'll place Miles catheter. Thank you for allowing me to participate in the care of your patient. We will monitor along with you. Problems: Donnell Finney MD Jun 20, 2017 15:25
[2017-06-20] MEDS ORDERED: SPIR25TA3 PO (15:26)
[2017-06-20] MEDS ORDERED: SACU1TAB PO (15:26)
[2017-06-20] MEDS ORDERED: AMIO200T PO (15:26)
[2017-06-20] MEDS ORDERED: DOFE250C3 PO (15:26)
[2017-06-20] MEDS ORDERED: METO-369 PO (15:26)
[2017-06-20] MEDS ORDERED: Ondansetron 2 mg/mL 2 mL Inj IVPUSH PRN ×2 (15:30→17:20)
[2017-06-20] MEDS ORDERED: Alum-Mag Hydrox-Simeth 30 mL Suspension PO PRN ×2 (15:30→17:20)
[2017-06-20] MEDS ORDERED: MAGN400T39 PO (15:36)
[2017-06-20] MEDS ORDERED: ACET325T51 PO (15:36)
[2017-06-20] MEDS ORDERED: CEPH500T PO (15:36)
[2017-06-20] MEDS ORDERED: HYDR-4003 PO (15:37)
[2017-06-20] MEDS ORDERED: FURO40TA4 PO (15:37)
--- NOTE | 2017-06-20 16:38 | PCM.HPMED ---
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 Patient recently had traumatic subarachnoid hemorrhage and subdural hematoma in April 2017. Patient had episode of syncope and head injury and was found to have intracranial bleed came to our emergency room and then transferred to [facility] on May 05, 2017. He stated that he spent a night over there and then was discharged. Two weeks ago, he started having headache, back and bilateral hip pain. Again he came to our emergency department on Jun 10, a repeat CAT scan revealed resolution of the previous seen subarachnoid hemorrhage. Lumbar spine CT showed no fracture. He was transferred to [facility] for further management. He received IV Dilaudid, morphine and oxycodone. He was sent home with Vicodin which has not alleviated his pain. Coumadin has been discontinue for at least 2 weeks. Today, the patient is complaining of low back, hip, and posterior leg pain. He describes this as a dull ache that is in his muscles and not in his joints. He denies nausea, vomiting, chest pain, shortness of breath. He does state that he is occasionally dizzy. CT scan of the head performed in the ER shows a resolving subdural hematoma with no evidence of an acute bleed X-ray of the pelvis does not show any acute fractures His initial basic metabolic panel revealed sodium level of 119. Ten days ago his serum sodium was 136. Patient reports drinking water ~ 8 glasses a day. According to his family patient has not slept for 4-5 nights due to polyuria. He stated that he constantly urinates every hour. He was recently told that he had enlarged prostate. He has not started any treatment. He reports recent loose stool and difficulty controlling his bowels. He is currently being treated with cephalexin by his primary doctor for a UTI. In the emergency department, a Miles catheter was placed which promptly drained 750 mL of clear yellow urine. Review of Systems: A comprehensive review of systems was performed and was negative except for as mentioned in history of present illness. Allergies Coded Allergies: No Known Allergies (Unverified , 06/20/17) Home Medications Dofetilide twice daily Aaron twice daily Metoprolol once daily Magnesium 400 mg once daily Spironolactone Cephalexin PMH History of subarachnoid hemorrhage Subdural hematoma Atrial fibrillation Cardiomyopathy Surgical History Knee surgery Family History Both parents still alive and healthy No significant medical history in any family members Social History Hx Alcohol Use: No Hx Substance Use: Yes (marijuana OCC ) Hx Tobacco Use: No Smoking Status: Former Smoker Living Arrangement: with Family (significant other, Celine) Exam Vital Signs Vital Sign - Last Date Time Temp Pulse Resp B/P Pulse Ox O2 Delivery O2 Flow Rate FiO2 06/20/17 14:11 87 15 134/85 97 Room Air 06/20/17 10:51 37.0 Exam General: No acute distress, well-developed, well-nourished, appropriately interactive HEENT: Normocephalic, atraumatic. Pupils 2-3 mm and reactive to light and accommodation. Neck: Supple with full range of motion. No jugular venous distension. No bruits. No lymphadenopathy or thyromegaly. Cardiovascular: Regular rate and rhythm with no murmurs, rubs, or gallops appreciated Pulmonary: Clear to auscultation bilaterally with no crackles, wheezes, or rhonchi. Normal respiratory effort with no use of accessory muscles. Abdomen: Bowel tones present. Soft, nontender, nondistended. Extremities: Hypertonic hamstrings bilaterally. No clubbing, cyanosis, edema Skin: Normal temperature, turgor, and texture Neurological: Cranial nerves grossly intact. Normal muscle strength, tone, and bulk. Normal patellar tendon reflexes. Normal yarn spinner strength. Psychiatric: Normal mood and affect. Alert and oriented to person, place, and time. Lab and Diagnostics Result Diagram: 06/20/17 1155 06/20/17 1155 X-Rays, CTs and MRIs X-ray of pelvis performed 06/20/2017 IMPRESSION: No source of pain found, no acute fracture found. There is, however, a subtle increased radiodensity along the inferior aspect of each obturator ring slightly greater on the left than the right that conceivably could represent obturator ring fractures that are healing or healed. MR scanning could be utilized for more accurate assessment if clinically desired. CT head without contrast performed 06/20/2017 IMPRESSION: Evolving left subdural hematoma, with reduction of the overall internal radiodensity consistent with expected change in the internal blood products. There are several areas of slight increased radiodensity along the inferior posterior margin of the subdural hemorrhage that might represent a manifestation of recent internal hemorrhage but the overall mass effect has not changed and for this reason the likelihood of acute superimposed on prior hemorrhage is considered relatively low. While the left hemispheric mild effacement is again seen [id number] mass effect has not developed. 12-lead ECG EKG performed 06/20/2017 Normal sinus rhythm rate of 92, possible LVH, repolarization abnormality Assessment & Plan In summary, Cristofer Lazaro is a 41-year-old male with a history of atrial fibrillation but is not on anticoagulation due to a recent subarachnoid hemorrhage as well as a more recent subdural hematom who presents to the emergency department for low back, hip and leg pain. He is admitted for management of his hyponatremia. Euvolemic hyponatremia, present on admission, active -Sodium on admission was 119 -Suspected etiology SIADH vs cerebral salt wasting syndrome as a result of his recent brain bleed -We will restrict fluid intake to 1500 mL per day -Maintain potassium over 4 and magnesium above 2 -Magnesium level pending -Order urine sodium and creatinine -Dr. Sargent of nephrology is following and will assist with electrolyte management Left-sided subdural hematoma, present on admission, active -He has been seen by neurologist, Luis Camp. We are attempting to contact him for guidance regarding imaging -CT scan without contrast performed 06/20/2017 suggests that this is resolving, and there is not an acute process present -Continue to monitor for neurologic changes -Avoid systemic anticoagulation -Neuro checks every 4 hours Acute urinary retention, present on admission, active -Miles catheter placement in the ED drained 900 mL of yellow -clear urine -Patient states his primary is in the process of ordering imaging for his prostate -Begin tamsulosin, 0.4 mg daily Suspicion of cauda equina syndrome, present on admission, ongoing -Recent history of a fall in which he injured his lower back -Recent loss of bowel control, and urinary retention -Difficulty in coordinating his lower limbs -We will consider imaging of the lumbar spine and pelvis with guidance from Dr. Camp, neurosurgeon in [place] History of UTI, present on admission, ongoing -Continue home cephalexin -Urinalysis pending History of congestive heart failure, present on admission, stable -His managing director is Dr. Covarrubias in [place] we are requesting records -We will review records to determine diastolic versus systolic -Continue home Erntesto -Continue home spironolactone -Urine drug screen ordered, patient denies history of drug abuse History of atrial fibrillation, present on admission, stable -Normal sinus rhythm on admission -Continue home dofetilide and metoprolol -Avoid systemic anticoagulation due to recent cerebral hemorrhage DVT prophylaxis: SCDs GI prophylaxis: Maalox Patient is full code Complexity of patient presentation warrants admission to inpatient status with an expected stay of greater than 2 midnights Attending Statement The patient was seen and examined together with Dr. Butler on 06/20/2017 and I agree with the history, exam and plan as outlined in the note above. . Nabil Butler DO Jun 20, 2017 16:38 Karel Macario MD Jun 21, 2017 09:23
[2017-06-20] MEDS ORDERED: Polyethylene Glycol (PEG) 17 Gm Powder PO PRN (17:20)
[2017-06-20] MEDS ORDERED: HYDROcodone-APAP 5-325 mg Tablet PO PRN (17:20)
[2017-06-20 17:28] LABS: APPEARANCE,URINE CLEAR (CLEAR,HAZY); COLOR,URINE YELLOW (YELLOW); OCCULT BLOOD,URINE NEGATIVE (NEGATIVE); UROBILINOGEN,URINE NORMAL (NORMAL)
--- NOTE | 2017-06-20 18:46 | NUR ---
Admit Patient admitted to floor at round 1645. A/O 3. Patient was able to move himself from gurney to bed. It was noted that patient was a little shaky when he moved to bed. Neuro checks WNL. No shaking noted at the time of neuro assessment. Admit complete. Initially tele was SR, but patient's heart rate and rhythm changed. ECG was done. ECG showed an atrial tachycardia, rate 123. MDs aware. Pt c/o lower back, hip and leg pain 04/30, stating that vicodin was not effective for pain management at home. MDs made aware and said IV Dilaudid would be ordered. RA sats at 97%. Lungs clear. Miles draining. Patient wanting to eat and is aware of new order for a fluid restriction. Oriented to room and call light. Patient knows not to get OOB w/o staff to assist. Report to shiftman RN.
[2017-06-20 19:08] LABS: OSMOLALITY, URINE 280 mOs/kH2O (250-1200)
[2017-06-20] MEDS ORDERED: .Epic Conversion Completed XX PRN (19:25)
[2017-06-20] MEDS ORDERED: HYDROmorphone 1 mg/mL Inj IVPUSH PRN (20:40)
[2017-06-20 20:58] LABS: Magnesium 1.7 mg/dL (1.6-2.6)
[2017-06-20] MEDS ORDERED: LEVE500S7 PO (22:14)
[2017-06-20] MEDS ORDERED: LIDO700A10 TP (22:14)
[2017-06-20] MEDS ORDERED: HYDROmorphone 1 mg/mL Inj IVPUSH ONE (22:55)
[2017-06-20] MEDS ORDERED: HYDROmorphone 0.5 mg/0.5 mL iSecure Syringe IVPUSH ONE (23:05)
--- NOTE | 2017-06-20 23:53 | NUR ---
Pain / meds / neuro Patient complaining of pain, 7-8/10 in his back, hips, legs. MD notified. PO Dilaudid changed to IV. 0.5 mg not effective so MD is updated again. Order changed to 1mg Q4, 0.5 more given and effective. Patient giving different information to RN from pharmacy on his cardiac meds, not reliable for medication information at this time. Patient is forgetful. No changes to neuro status.
[2017-06-21] MEDS ORDERED: HYDROmorphone 1 mg/mL Inj IVPUSH PRN (00:40)
[2017-06-21] MEDS ORDERED: MeTOProlol XL 50 mg ER24 Tablet PO SCH (08:30)
[2017-06-21] MEDS ORDERED: PT Own Med->Oral Medication PO SCH (08:30)
== END 2017-06-21 01:16 | disposition admitted as inpatient to this hospital (09) | DRG 951 ==
LOC: SED 10:44 → CCU 15:02
PROVIDERS: ADMIT Internal Medicine; ATTEND Internal Medicine
DX: R69 Illness, unspecified (principal)